=== PATIENT | male | born 1970 | race Caucasian/White ===

== ENCOUNTER 2019-03-21 16:01 | Inpatient (IN) | payer SELFPAY ==
[2019-03-21] MEDS ORDERED: NACL 0.9% 1000 ML 2,000 ML ONE (16:51)
[2019-03-21] MEDS ORDERED: VERSED IV PRN (17:06)
[2019-03-21] MEDS ORDERED: NACL 0.9% 1000 ML IV ONE (17:06)
[2019-03-21] MEDS ORDERED: VASELINE LIP THERAPY TP PRN (17:06)
[2019-03-21] MEDS ORDERED: SUBLIMAZE IV PRN (17:06)
[2019-03-21] MEDS ORDERED: ARTIFICIAL TEARS OPHTH OINT OU PRN (17:06)
[2019-03-21] MEDS ORDERED: ROCEPHIN/NS 1 GM/50 ML 1 GM/50 ML BAG IV ONE ×2 (17:13→19:54)
--- NOTE | 2019-03-21 17:27 | Emergency Department Report ---
ED General Adult HPI - General Chief complaint: Cardiac Arrest/CPR Stated complaint: SARBJIT Time Seen by Provider: 03/21/19 17:04 Source: EMS (patient is altered and obtunded. Verbal report is received from EMS.ems notes not available at time of chart dictation), RN notes reviewed, old records reviewed Mode of arrival: Stretcher Limitations: Altered Mental Status - History of Present Illness Initial comments: This is a 49-year-old gentleman. The patient is not known to this provider previously. The patient apparently has a history of COPD, hyperkalemia, and anxiety disorder. The patient is brought to the hospital by emergency medical services. EMS reports no trauma. The patient's is started on CPAP in the field, and reportedly given steroids 125 solu medrol, 2 gram magnesium sulfate, 5 mg albuterol, 0.5 atrovent. Upon arrival, the patient decompensated, and became a respiratory arrest. The patient received bag valve mask ventilation, and was intubated with one attempt, using a 7.5 endotracheal tube, inserted by myself, under direct visualization, with no difficulty. As per verbal report from EMS, patient hypoglycemic in the field, and they've initiated dextrose therapy. Patient has a glucose of greater than 100 in the ER. Patient lost pulses. Aggressive high-quality CPR initiated. Please see nursing code sheet. Given history of COPD, the patient is emergently decompress in his bilateral hemithorax, with 16 [place] IV, placed in the mid clavicular line, second axillary space, by myself, and EMS bisque brusher under my direct supervision. Shortly after insertion, patient regained pulses back. He is still in a coma. With typical sterile technique, the left hemithorax is prepped and draped, with Betadine, and using sterile technique, a 9 [place] pigtail catheter is inserted in the left midclavicular line, approximately fourth or fifth intercostal space, in line with the left nipple. Pigtail is secured to a Heimlich valve. This pigtail catheter is then secured. Shortly thereafter, the patient lost pulses again. CPR is again initiated. Please see nursing notes for details of CPR and code. Pulses are again obtained, and patient remains in a coma. Blood pressure in the low 100s. The right hemithorax is prepped and draped in typical sterile fashion, and a 9 [place] pigtail catheter is inserted in the right mid axillary line, fourth or fifth intercostal space, in line with the nipple. The pigtail is then secured to a Heimlich valve. Both anterior chest wall sides have a three-way occlusive dressing placed. IV fluids ordered wide open. Patient placed on airborne precautions, given that he has the presence of bloody aspirate and his endotracheal tube. Patient called as a code sepsis, and will be covered empirically with ceftriaxone and azithromycin. This hospital does not have a postarrest hypot hermia protocol, and therefore not be initiated on postarrest hypothermia. Emergent CT scan of the brain, CT scan of the chest ordered to further evaluate. Post intubation sedation packet is ordered. Appropriate laboratory studies ordered. Case discussed with critical care physician on-call, Dr. Michael Garduno, who agrees with the aforementioned plan. This facility does not perform postarrest hypo thermia, as we do not have a hypothermia protocol. Patient presented with a GCS of 3, and has had no improvements with his mental status. As per verbal report from EMS, who in turn received report from family, the patient reportedly has chronic shortness of breath, and apparently, the patient told the sister today to call 911 because his breathing got worse. -: unknown Radiation: other Quality: other Consistency: other Improves with: other Worsens with: other Associated Symptoms: confusion, shortness of breath, weakness - Related Data Previous Rx's Medication Instructions Recorded Last Taken Type ALBUTEROL Inhaler (OR & NICU) 2 puff IH QID PRN #1 inhalation 05/29/16 Unknown Rx [ProAir HFA Inhaler] Benzonatate [Tessalon Perles] 100 mg PO Q6H PRN #30 capsule 05/29/16 Unknown Rx Budesoni/Formotero 160-4.5(Nf) 2 puff IH BID #1 inha 05/29/16 Unknown Rx [Symbicort 160-4.5 (Nf)] Famotidine [Pepcid] 20 mg PO QDAY #30 tablet 05/29/16 Unknown Rx HYDROcodone/APAP 5-325 [Baldwin 2 each PO Q4H PRN #30 tablet 05/29/16 Unknown Rx 5-325 mg TAB] LORazepam [Ativan] 0.5 mg PO TID PRN #30 tablet 05/29/16 Unknown Rx Phenol 1.4% [Chloraseptic] 1 spray MM PRN PRN #1 bottle 05/29/16 Unknown Rx Prednisone [predniSONE 5 mg (6-Day 5 mg PO .TAPER #1 tab.ds.pk 05/29/16 Unknown Rx Pack, 21 Tabs)] Tiotropium [Spiriva] 18 mcg IH QDAY #1 box 05/29/16 Unknown Rx guaiFENesin/CODEINE [Robitussin AC] 10 ml PO Q4H PRN #1 bottle 05/29/16 Unknown Rx levoFLOXacin [Levaquin] 750 mg PO QDAY #5 tablet 05/29/16 Unknown Rx Allergies Allergy/AdvReac Type Severity Reaction Status Date / Time No Known Allergies Allergy Unverified 05/26/16 11:15 ED Review of Systems ROS: Stated complaint: SARBJIT Other details as noted in HPI Comment: Unobtainable due to pts medical conditions ED Past Medical Hx - Past Medical History Previous Medical History?: Yes Hx Congestive Heart Failure: No Hx Diabetes: No Hx Asthma: Yes Hx COPD: Yes - Social History Smoking Status: Never Smoker Substance Use Type: None - Medications Home Medications: Home Medications Medication Instructions Recorded Confirmed Last Taken Type ALBUTEROL Inhaler (OR & NICU) 2 puff IH QID PRN #1 inhalation 05/29/16 Unknown Rx [ProAir HFA Inhaler] Benzonatate [Tessalon Perles] 100 mg PO Q6H PRN #30 capsule 05/29/16 Unknown Rx Budesoni/Formotero 160-4.5(Nf) 2 puff IH BID #1 inha 05/29/16 Unknown Rx [Symbicort 160-4.5 (Nf)] Famotidine [Pepcid] 20 mg PO QDAY #30 tablet 05/29/16 Unknown Rx HYDROcodone/APAP 5-325 [Baldwin 2 each PO Q4H PRN #30 tablet 05/29/16 Unknown Rx 5-325 mg TAB] LORazepam [Ativan] 0.5 mg PO TID PRN #30 tablet 05/29/16 Unknown Rx Phenol 1.4% [Chloraseptic] 1 spray MM PRN PRN #1 bottle 05/29/16 Unknown Rx Prednisone [predniSONE 5 mg (6-Day 5 mg PO .TAPER #1 tab.ds.pk 05/29/16 Unknown Rx Pack, 21 Tabs)] Tiotropium [Spiriva] 18 mcg IH QDAY #1 box 05/29/16 Unknown Rx guaiFENesin/CODEINE [Robitussin AC] 10 ml PO Q4H PRN #1 bottle 05/29/16 Unknown Rx levoFLOXacin [Levaquin] 750 mg PO QDAY #5 tablet 05/29/16 Unknown Rx ED Physical Exam - General Limitations: Altered Mental Status General appearance: obtunded - Head Head exam: Present: atraumatic - Eye Eye exam: Present: normal appearance, other (pupils are minimally reactive to light bilaterally) - ENT ENT exam: Present: normal orophraynx (bloody aspirate is noted in the oropharynx) - Neck Neck exam: Present: normal inspection - Respiratory Respiratory exam: Present: respiratory distress, wheezes, rhonchi, decreased breath sounds, other (decreased breath sounds in the right upper hemithorax) - Cardiovascular Cardiovascular Exam: Present: regular rate, normal rhythm. Absent: systolic murmur - GI/Abdominal GI/Abdominal exam: Present: soft. Absent: distended, tenderness, guarding, rebound, rigid, pulsatile mass - Rectal Rectal exam: Present: normal inspection - exam: Present: normal inspection External exam: Present: normal external exam - Extremities Exam Extremities exam: Present: normal inspection - Back Exam Back exam: Absent: tenderness, CVA tenderness (R), paraspinal tenderness, vertebral tenderness - Psychiatric Psychiatric exam: Present: other (non verbal) - Skin Skin exam: Present: dry ED Course Vital Signs 03/21/19 03/21/19 03/21/19 16:48 17:08 17:45 Temperature 98.1 F Pulse Rate 92 H 76 Pulse Rate [ Throughout] Respiratory 18 18 18 Rate Respiratory Rate [ Throughout] Blood Pressure Blood Pressure 102/83 98/31 [Right] O2 Sat by Pulse Oximetry 03/21/19 03/21/19 03/21/19 18:16 18:26 18:36 Temperature Pulse Rate 74 37 L 78 Pulse Rate [ Throughout] Respiratory 18 13 18 Rate Respiratory Rate [ Throughout] Blood Pressure Blood Pressure 123/91 136/45 [Right] O2 Sat by Pulse 100 Oximetry 03/21/19 03/21/19 03/21/19 18:45 19:00 19:06 Temperature Pulse Rate 74 77 73 Pulse Rate [ Throughout] Respiratory 18 17 18 Rate Respiratory Rate [ Throughout] Blood Pressure 111/30 111/30 Blood Pressure 111/30 [Right] O2 Sat by Pulse 100 91 79 L Oximetry 03/21/19 03/21/19 03/21/19 19:10 19:16 19:20 Temperature Pulse Rate 74 72 73 Pulse Rate [ Throughout] Respiratory 22 18 19 Rate Respiratory Rate [ Throughout] Blood Pressure 111/30 111/30 141/118 Blood Pressure [Right] O2 Sat by Pulse 97 96 94 Oximetry 03/21/19 03/21/19 03/21/19 19:26 19:30 19:35 Temperature 94 F L Pulse Rate 72 72 72 Pulse Rate [ Throughout] Respiratory 17 18 14 Rate Respiratory Rate [ Throughout] Blood Pressure 141/118 141/118 78/41 Blood Pressure [Right] O2 Sat by Pulse 92 92 95 Oximetry 03/21/19 03/21/19 03/21/19 19:40 19:46 19:50 Temperature Pulse Rate 71 72 72 Pulse Rate [ Throughout] Respiratory 16 16 18 Rate Respiratory Rate [ Throughout] Blood Pressure 78/41 78/41 91/46 Blood Pressure [Right] O2 Sat by Pulse 98 96 95 Oximetry 03/21/19 03/21/19 03/21/19 19:56 20:00 20:06 Temperature Pulse Rate 71 71 72 Pulse Rate [ 74 Throughout] Respiratory 18 18 18 Rate Respiratory 18 Rate [ Throughout] Blood Pressure 91/46 91/46 91/46 Blood Pressure [Right] O2 Sat by Pulse 95 96 95 Oximetry 03/21/19 03/21/19 03/21/19 20:10 20:16 20:20 Temperature Pulse Rate 72 73 74 Pulse Rate [ Throughout] Respiratory 18 14 16 Rate Respiratory Rate [ Throughout] Blood Pressure 91/46 91/46 91/46 Blood Pressure [Right] O2 Sat by Pulse 95 90 91 Oximetry 03/21/19 03/21/19 03/21/19 20:26 20:28 20:30 Temperature Pulse Rate 75 74 Pulse Rate [ 78 Throughout] Respiratory 18 17 Rate Respiratory 18 Rate [ Throughout] Blood Pressure 63/31 63/31 Blood Pressure [Right] O2 Sat by Pulse 96 99 Oximetry 03/21/19 03/21/19 03/21/19 20:36 20:40 20:46 Temperature Pulse Rate 75 76 75 Pulse Rate [ Throughout] Respiratory 19 17 18 Rate Respiratory Rate [ Throughout] Blood Pressure 60/19 Blood Pressure [Right] O2 Sat by Pulse 100 100 100 Oximetry 03/21/19 03/21/19 03/21/19 20:50 20:56 21:00 Temperature Pulse Rate 74 78 78 Pulse Rate [ Throughout] Respiratory 14 16 19 Rate Respiratory Rate [ Throughout] Blood Pressure 70/44 70/44 91/46 Blood Pressure [Right] O2 Sat by Pulse 100 100 100 Oximetry 03/21/19 03/21/19 03/21/19 21:06 21:10 21:16 Temperature Pulse Rate 79 74 71 Pulse Rate [ Throughout] Respiratory 15 18 18 Rate Respiratory Rate [ Throughout] Blood Pressure 138/110 70/44 70/44 Blood Pressure [Right] O2 Sat by Pulse 98 97 83 L Oximetry 03/21/19 03/21/19 03/21/19 21:20 21:26 21:30 Temperature Pulse Rate 110 H 93 H Pulse Rate [ Throughout] Respiratory 17 17 Rate Respiratory Rate [ Throughout] Blood Pressure 59/36 59/36 138/110 Blood Pressure [Right] O2 Sat by Pulse 88 87 96 Oximetry 03/21/19 03/21/19 03/21/19 21:36 21:40 21:46 Temperature Pulse Rate 88 83 79 Pulse Rate [ Throughout] Respiratory 18 18 16 Rate Respiratory Rate [ Throughout] Blood Pressure 150/72 150/72 150/72 Blood Pressure [Right] O2 Sat by Pulse 100 99 76 L Oximetry 03/21/19 03/21/19 03/21/19 21:50 21:56 22:00 Temperature 96.3 F L Pulse Rate 75 74 75 Pulse Rate [ Throughout] Respiratory 12 17 14 Rate Respiratory Rate [ Throughout] Blood Pressure 91/70 91/70 91/70 Blood Pressure [Right] O2 Sat by Pulse 85 32 L Oximetry 03/21/19 03/21/19 03/21/19 22:06 22:10 22:16 Temperature Pulse Rate 74 67 Pulse Rate [ Throughout] Respiratory 15 13 97 H Rate Respiratory Rate [ Throughout] Blood Pressure 70/35 87/66 87/66 Blood Pressure [Right] O2 Sat by Pulse 68 L Oximetry 03/21/19 03/21/19 03/21/19 22:20 22:26 22:29 Temperature Pulse Rate 84 81 83 Pulse Rate [ Throughout] Respiratory 14 15 Rate Respiratory Rate [ Throughout] Blood Pressure 87/66 174/90 150/72 Blood Pressure [Right] O2 Sat by Pulse 82 L 64 L 99 Oximetry 03/21/19 03/21/19 03/21/19 22:30 22:36 22:40 Temperature Pulse Rate 81 79 81 Pulse Rate [ Throughout] Respiratory 14 17 16 Rate Respiratory Rate [ Throughout] Blood Pressure 174/90 63/42 72/39 Blood Pressure [Right] O2 Sat by Pulse 46 L 15 L Oximetry 03/21/19 03/21/19 03/21/19 22:46 22:50 22:56 Temperature Pulse Rate 41 L 75 Pulse Rate [ Throughout] Respiratory 13 15 Rate Respiratory Rate [ Throughout] Blood Pressure 204/115 Blood Pressure [Right] O2 Sat by Pulse 80 L Oximetry 03/21/19 03/21/19 03/21/19 23:00 23:06 23:10 Temperature Pulse Rate 62 82 85 Pulse Rate [ Throughout] Respiratory 86 H 16 18 Rate Respiratory Rate [ Throughout] Blood Pressure 204/115 172/78 144/75 Blood Pressure [Right] O2 Sat by Pulse 63 L 87 91 Oximetry 03/21/19 03/21/19 03/21/19 23:16 23:20 23:25 Temperature Pulse Rate 85 85 83 Pulse Rate [ Throughout] Respiratory 13 17 18 Rate Respiratory Rate [ Throughout] Blood Pressure 120/53 118/69 85/59 Blood Pressure [Right] O2 Sat by Pulse 91 88 61 L Oximetry 03/21/19 03/21/19 03/21/19 23:30 23:35 23:40 Temperature Pulse Rate 64 94 H Pulse Rate [ Throughout] Respiratory 19 65 H 24 Rate Respiratory Rate [ Throughout] Blood Pressure 71/52 143/85 143/85 Blood Pressure [Right] O2 Sat by Pulse 4 L 54 L Oximetry 03/21/19 03/21/19 03/21/19 23:45 23:50 23:56 Temperature Pulse Rate 80 Pulse Rate [ Throughout] Respiratory 15 20 9 L Rate Respiratory Rate [ Throughout] Blood Pressure 171/74 171/74 Blood Pressure [Right] O2 Sat by Pulse 88 Oximetry 03/22/19 00:00 Temperature Pulse Rate Pulse Rate [ Throughout] Respiratory 8 L Rate Respiratory Rate [ Throughout] Blood Pressure Blood Pressure [Right] O2 Sat by Pulse Oximetry - Reevaluation(s) Reevaluation #1: 03/21/19 17:33 Differential diagnosis, including but not limited to: Respiratory arrest, pneumonia, pneumothorax, tension pneumothorax, tuberculosis, COPD exacerbation, pulmonary embolism, intracranial lesion Assessment and plan: 49-year-old gentleman with respiratory arrest, received CPR, bilateral anterior chest wall needle decompressions, followed by bilateral 9 [place] pigtail catheter placement, currently intubated, with a GCS of 3, blood pressure in the low 100s. CT scan of the brain, chest pending. Laboratory studies pending. X-ray of the chest pending. Airborne precautions are ordered. Plan to admit to this hospital once initial diagnostics have resulted. Reevaluation #2: 03/21/19 17:56 Laboratory studies are reviewed and appreciated. Found to have renal insuffi ciency, hyperkalemia, and hypoglycemia. Medical treatment for hyperkalemia is ordered. Discussed with nephrology on- call, Dr. Jett, who agrees with this plan, and recommends repeat laboratory studies in 2-3 hours to assess potassium. If hyperkalemia still present after medical therapy and aggressive resuscitation, renal team will consider dialysis. The patient's renal insufficiency is reviewed and appreciated, however, as he arrested twice, he requires emergent diagnostic imaging to rule out potentially life-threatening pulmonary embolism. Given his obvious pulmonary infiltrates on x-ray, presence of crepitus, we are concerned that a nuclear medicine study will not be diagnostic to exclude large pulmonary embolus. Patient will be placed on Accu-Cheks every one hour, and dextrose drip is ordered. Reevaluation #3: 03/21/19 18:58 Patient had another cardiac arrest while in the ER. Received standard CPR and ACLS. Pulses are regained. Postprocedure x-ray of the chest and EKG are ordered. Initially after pulses were obtained, patient was hypotensive, an emergent sterile ultrasound guided right-sided femoral central line is attempted. Using ultrasound guidance, a collapsible nonpulsatile vessel was easily identified, and cannulated under direct visualization with ultrasound guidance. However, brisk bright red blood came out after insertion of the needle, therefore, the attempt was aborted. Direct pressure was held by myself for 10 minutes. A pressure dressing was then applied. Blood pressure 110/45. Patient does not requires vasopressor therapy at this time. Hospital physician paged to arrange admission. Reevaluation #4: 03/21/19 19:49 Repeat x-ray, repeat EKG reviewed and appreciated. Family at the bedside. Extensive discussion had with the family regarding poor prognosis, need for evaluation for tuberculosis. Family and friends have been given n 95 masks and have been instructed on how to use them. Blood pressure currently 78/45. Additional fluids ordered. Repeat Accu-Chek pending. The hospital physician was paged. Reevaluation #5: 03/21/19 19:53 Dr Priest accepts to medical service - Consultations Consultation #1: 03/21/19 20:26 Discuss repeat laboratory studies with nephrology on-call, Dr. Jett Recommends a bicarbonate drip and dextrose-containing solution, as ordered, at 125 mL per hour. Repeat potassium 5.3. We both agree the patient does not require emergent dialysis at this time. Nephrology agrees to follow in consultation. We will continue the patient's current fluid resuscitation. Consultation #2: 03/21/19 21:59 Patient lost pulses again. He receives successful resuscitation. Postresuscitation, still in COMATOSE Patient requires norepinephrine therapy. An emergent sterile left-sided internal jugular central line was placed by myself, using ultrasound guidance, with one attempt, with no difficulty, and no obvious complications. Postprocedure x-ray shows appropriate tube placement. Consultation #3: 03/21/19 22:48 Patient continues to code, and continues to have difficulty with saturation. Respiratory therapy instructed to change endotracheal tube over a bougie catheter to 8.0, or E.5 endotracheal tube. Suctioning is recommended. We discussed with critical care, Dr. Michael Garduno, who is in agreement with trans examic acid, desmopression, and aggressive supportive care requests respiratory therapy call her 03/21/19 23:46 Patient coded multiple times. Family at the bedside. Extensive discussion had regarding DO NOT RESUSCITATE and goals of care. Family still trying to decide. Dr. Joy at the bedside directing resuscitation. I am present as well. Prognosis is extremely poor. Patient is oozing from multiple sites, suspect DIC - Procedure Description Procedures done: Right hemithorax was prepped and draped in typical sterile fashion. The right mid axillary line, fourth intercostal space is identified, and a stab incision is made with an 11-gauge blade. Then, 9 [place] pigtail catheter is inserted over needle trocar, until the pleura is punctured, and in the pigtail itself is advanced further, unitl all fenestrations all within the hemithorax. The tube is then sutured in place with 0 silk, covered with Xeroform, and secured with silk tape, and attachched to a Heimlich valve. - Central Line Placement Left IJ Consent Obtained: emergent situation Time Out Performed: Yes Patient Placed on Monitor/Pulse Ox: Yes MD Prep: mask, gown, gloves Central Line Prep: Chlorhexidine scrub, sterile drapes applied Local Anesthesia Used: Lidocaine 1% Amount of Anesthesia Used (mls): 5 Ultrasound Used for Placement: Yes Central Line Lumen Inserted: triple Bloods Obtained for Lab: No Central Line Position: good blood return, all ports aspirated, flus, sutured in place with 2-0 Dressing Applied: Tegaderm Post Procedure X-Ray: tip of catheter in good p Patient Tolerated Procedure: well Complications: none - Chest Tube Chest Tube Location: forth interspace Size of [place] Tube (cm): 9 Chest Tube Procedure: betadine prep, sterile drapes applied [place] of Air [place]: Yes Tube Drainage: see nurses notes Tube Sutured to Skin: Yes Post Procedure CXR?: Yes Progress: left hemithorax - Intubation Time Out Performed: No (emergency situation) Laryngoscope: Thuy Size: 4 ET Tube Size: 7.5 Tube Secured Depth (cm): 23 Tube Secured Location: teeth Tube Placement Confirmation: visualized tube passing t, equal breath sounds bilat, no breath sounds over epi, confirmation by capnometr Patient Tolerated Procedure: well Intubation Complications: none ED Medical Decision Making - Lab Data Result diagrams: 03/21/19 17:10 03/21/19 23:30 Vital Signs 03/21/19 03/21/19 16:48 17:08 Pulse Rate 92 H Respiratory 18 18 Rate Blood Pressure 102/83 [Right] Vital Signs 03/21/19 03/21/19 16:48 17:08 Pulse Rate 92 H Respiratory 18 18 Rate Blood Pressure 102/83 [Right] Lab Results 03/21/19 03/21/19 03/21/19 Range/Units 16:21 17:10 17:10 WBC 8.6 (4.5-11.0) K/mm3 RBC 4.40 (3.65-5.03) M/mm3 Hgb 9.9 L (11.8-15.2) gm/dl Hct 33.2 L (35.5-45.6) % MCV 75 L (84-94) fl MCH 22 L (28-32) pg MCHC 30 L (32-34) % RDW 17.9 H (13.2-15.2) % Plt Count 202 (140-440) K/mm3 Sodium 140 (137-145) mmol/L Potassium 5.6 H (3.6-5.0) mmol/L Chloride 95.5 L (98-107) mmol/L Carbon Dioxide 16 L (22-30) mmol/L Anion Gap 34 mmol/L BUN 31 H (9-20) mg/dL Creatinine 2.3 H (0.8-1.5) mg/dL Estimated GFR 30 ml/min BUN/Creatinine Ratio 13 % Glucose 32 L* (75-100) mg/dL POC Glucose 103 (70-105) Lactic Acid (0.7-2.0) mmol/L Calcium 6.9 L (8.4-10.2) mg/dL Magnesium 5.20 H (1.7-2.3) mg/dL Total Bilirubin 0.80 (0.1-1.2) mg/dL AST 1512 H (5-40) units/L ALT 1180 H (7-56) units/L Alkaline Phosphatase 79 (35-129) units/L Total Creatine Kinase 214 H (55-170) units/L Troponin T < 0.010 (0.00-0.029) ng/mL Total Protein 4.6 L (6.3-8.2) g/dL Albumin 2.6 L (3.9-5) g/dL Albumin/Globulin Ratio 1.3 % Salicylates (2.8-20.0) mg/dL Acetaminophen (10.0-30.0) ug/mL Plasma/Serum Alcohol (0-0.07) % 03/21/19 03/21/19 03/21/19 Range/Units 17:10 17:10 17:10 WBC (4.5-11.0) K/mm3 RBC (3.65-5.03) M/mm3 Hgb (11.8-15.2) gm/dl Hct (35.5-45.6) % MCV (84-94) fl MCH (28-32) pg MCHC (32-34) % RDW (13.2-15.2) % Plt Count (140-440) K/mm3 Sodium (137-145) mmol/L Potassium (3.6-5.0) mmol/L Chloride (98-107) mmol/L Carbon Dioxide (22-30) mmol/L Anion Gap mmol/L BUN (9-20) mg/dL Creatinine (0.8-1.5) mg/dL Estimated GFR ml/min BUN/Creatinine Ratio % Glucose (75-100) mg/dL POC Glucose (70-105) Lactic Acid 13.30 H* (0.7-2.0) mmol/L Calcium (8.4-10.2) mg/dL Magnesium (1.7-2.3) mg/dL Total Bilirubin (0.1-1.2) mg/dL AST (5-40) units/L ALT (7-56) units/L Alkaline Phosphatase (35-129) units/L Total Creatine Kinase (55-170) units/L Troponin T (0.00-0.029) ng/mL Total Protein (6.3-8.2) g/dL Albumin (3.9-5) g/dL Albumin/Globulin Ratio % Salicylates 0.4 L (2.8-20.0) mg/dL Acetaminophen 7.6 L (10.0-30.0) ug/mL Plasma/Serum Alcohol (0-0.07) % 03/21/ Range/Units 17:10 WBC (4.5-11.0) K/mm3 RBC (3.65-5.03) M/mm3 Hgb (11.8-15.2) gm/dl Hct (35.5-45.6) % MCV (84-94) fl MCH (28-32) pg MCHC (32-34) % RDW (13.2-15.2) % Plt Count (140-440) K/mm3 Sodium (137-145) mmol/L Potassium (3.6-5.0) mmol/L Chloride (98-107) mmol/L Carbon Dioxide (22-30) mmol/L Anion Gap mmol/L BUN (9-20) mg/dL Creatinine (0.8-1.5) mg/dL Estimated GFR ml/min BUN/Creatinine Ratio % Glucose (75-100) mg/dL POC Glucose (70-105) Lactic Acid (0.7-2.0) mmol/L Calcium (8.4-10.2) mg/dL Magnesium (1.7-2.3) mg/dL Total Bilirubin (0.1-1.2) mg/dL AST (5-40) units/L ALT (7-56) units/L Alkaline Phosphatase (35-129) units/L Total Creatine Kinase (55-170) units/L Troponin T (0.00-0.029) ng/mL Total Protein (6.3-8.2) g/dL Albumin (3.9-5) g/dL Albumin/Globulin Ratio % Salicylates (2.8-20.0) mg/dL Acetaminophen (10.0-30.0) ug/mL Plasma/Serum Alcohol < 0.01 (0-0.07) % - EKG Data -: EKG Interpreted by [facility] EKG shows normal: sinus rhythm Rate: normal - EKG Data 03/21/19 17:36 Sinus rhythm, 89 bpm, normal axis, QTC prolonged, atrial enlargement, incomplete right bundle branch block, motion artifact, the EKG is abnormal, the EKG is not consistent with ST elevation myocardial infarction. Appears grossly unchanged from prior EKG from 06/27/2016. - Radiology Data Radiology results: pending, report reviewed, image reviewed Print Report Referring Physician: YASEMIN HOPE Patient Name: JOELLEN CABALLERO Date of : 1970 Sex: Male Report Date: 2019-03-21 Report Status: Finalized Findings [address] [address] XRay Report Signed Patient: JOELLEN GRESHAM MR#: [id number] : 1970 Acct:[id number] Age/Sex: 49 / M ADM Date: 03/21/19 Loc: ED Attending Dr: Ordering Physician: YASEMIN HOPE MD Date of Service: 03/21/19 Procedure(s): XR chest 1V ap Accession Number(s): [id number] cc: YASEMIN HOPE MD Fluoro Time In Minutes: CHEST 1 VIEW INDICATION: ETT placement. COMPARISON: 07/02/2016. FINDINGS: Support devices: Endotracheal tube in satisfactory position. Heart: Within normal limits. Lungs/Pleura: Diffuse bilateral infiltrates greatest at the upper zones right greater than left. Subcutaneous emphysema is extensive. A left apical pneumothorax is small. Additional findings: None. IMPRESSION: 1. Diffuse bilateral pneumonia right greater than left. 2. Endotracheal tube in satisfactory position. 3. Small left apical pneumothorax and extensive subcutaneous emphysema. Signer Name: Christopher Murry MD Signed: 03/21/2019 6:02 PM Workstation Name: [email or web address] Transcribed By: ES Dictated By: Christopher Murry MD Electronically Authenticated By: Christopher Murry MD Signed Date/Time: 03/21/19 1802 Print Report Referring Physician: YASEMIN HOPE Patient Name: JOELLEN CABALLERO Date of : 1970 Sex: Male Report Date: 2019-03-21 Report Status: Finalized Findings [facility] [address] [place] [address] Cat Scan Report Signed Patient: JOELLEN GRESHAM MR#: [id number] : 1970 Acct:[id number] Age/Sex: 49 / M ADM Date: 03/21/19 Loc: ED Attending Dr: Ordering Physician: YASEMIN HOPE MD Date of Service: 03/21/19 Procedure(s): CT angio chest Accession Number(s): [id number] cc: YASEMIN HOPE MD CT angio chest INDICATION / CLINICAL INFORMATION: resp arrest. TECHNIQUE: Precontrast bolus timing images were obtained followed by postcontrast axial and reformatted images. 3-plane MIP reconstructions were performed at an independent workstation by the technologist. All CT scans at this location are performed using CT dose reduction for ALARA by means of automated exposure control. COMPARISON: 05/27/2016 FINDINGS: Extensive subcutaneous emphysema and small bilateral pneumothoraces. Pleural catheters are in place bilaterally. There are areas of bilateral patchy airspace opacity throughout both lungs, most predominantly in the right upper lobe where there are multiple cystic areas probably representing bullous disease. No mediastinal emphysema or adenopathy. Enhancement of the pulmonary arteries is normal bilaterally. No evidence of pulmonary embolism. No skeletal abnormality. Limited upper abdominal images are nonremarkable. IMPRESSION: 1. No evidence of pulmonary embolism. 2. Bilateral airspace disease. 3. Small bilateral pneumothorax with pleural catheters. Signer Name: Stas Johnson MD Signed: 03/21/2019 6:43 PM Workstation Name: [id number] Print Report Referring Physician: YASEMIN HOPE Patient Name: JOELLEN CABALLERO Date of : 1970 Sex: Male Report Date: 2019-03-21 Report Status: Finalized Findings [facility] [address] [place] [id number] Cat Scan Report Signed Patient: JOELLEN GRESHAM MR#: [id number] : 1970 Acct:[id number] Age/Sex: 49 / M ADM Date: 03/21/19 Loc: ED Attending Dr: Ordering Physician: YASEMIN HOPE MD Date of Service: 03/21/19 Procedure(s): CT head/brain wo con Accession Number(s): [id number] cc: YASEMIN HOPE MD CT head/brain wo con INDICATION / CLINICAL INFORMATION: 49 years Male; ams resp arrest. TECHNIQUE: Routine CT head without contrast. All CT scans at this location are performed using CT dose reduction for ALARA by means of automated exposure control. Suboptimal carie ent positioning; metallic hardware artifact. COMPARISON: None. FINDINGS: BRAIN / INTRACRANIAL CONTENTS: The patient is intubated. No acute hemorrhage, mass effect, midline shift, hydrocephalus, or acute, large territorial infarct. No chronic infarct or focal atrophy. Normal brain volume and ventricular/sulcal size for age. No significant white matter abnormality. CRANIOCERVICAL JUNCTION: No significant abnormality. ORBITS: No significant abnormality of visualized orbits. SINUSES / MASTOIDS: Scattered areas of partial opacification and mucosal thickening seen, which certainly may be related to the patient being intubated. Secretions seen in the nasopharynx as well. ADDITIONAL FINDINGS: None. IMPRESSION: 1. No focal mass, hemorrhage, hydrocephalus, or acute, large territorial infarct on this limited CT. Signer Name: Ishmael Nuñez MD, III Signed: 03/21/2019 6:33 PM Workstation Name: [id number] Transcribed By: HR Dictated By: Ishmael Nuñez MD Electronically Authenticated By: Ishmael Nuñez MD Signed Date/Time: 03/21/19 1833 \ Print Report Referring Physician: YASEMIN HOPE Patient Name: JOELLEN CABALLERO Date of : 1970 Sex: Male Report Date: 2019-03-21 Report Status: Finalized Findings [address] [address] XRay Report Signed Patient: JOELLEN GRESHAM MR#: [id number] : 1970 Acct:[id number] Age/Sex: 49 / M ADM Date: 03/21/19 Loc: ED Attending Dr: Ordering Physician: YASEMIN HOPE MD Date of Service: 03/21/19 Procedure(s): XR chest 1V ap Accession Number(s): [id number] cc: YASEMIN HOPE MD Fluoro Time In Minutes: CHEST 1 VIEW INDICATION / CLINICAL INFORMATION: s/p arrest. 03/21/2019 at 1730 hours COMPARISON: None available. FINDINGS: SUPPORT DEVICES: Bilateral pleural catheters are unchanged in position. The tip of the endotracheal tube is 9 cm from the zayda. HEART / MEDIASTINUM: No significant abnormality. LUNGS / PLEURA: Multifocal airspace opacities are unchanged small left pneumothorax and tiny right apical pneumothorax. ADDITIONAL FINDINGS: Subcutaneous emphysema bilaterally is unchanged. IMPRESSION: 1. Small bilateral pneumothoraces. 2. No change in extensive airspace disease. Signer Name: Stas Johnson MD Signed: 03/21/2019 7:31 PM Workstation Name: [id number] Transcribed By: KRYSTLE Dictated By: Stas Johnson MD Electronically Authenticated By: Stas Johnson MD Signed Date/Time: 03/21/19 1931 rint Report Referring Physician: YASEMIN HOPE Patient Name: JOELLEN CABALLERO Date of : 1970 Sex: Male Report Date: 2019-03-21 Report Status: Finalized Findings [address] [address] XRay Report Signed Patient: JOELLEN GRESHAM MR#: [id number] : 1970 Acct:[id number] Age/Sex: 49 / M ADM Date: 03/21/19 Loc: CC1 A260-[address]: TANIA JOY MD Ordering Physician: YASEMIN HOPE MD Date of Service: 03/21/19 Procedure(s): XR chest 1V ap Accession Number(s): [id number] cc: YASEMIN HOPE MD Fluoro Time In Minutes: . CHEST 1 VIEW INDICATION / CLINICAL INFORMATION: central line placement. COMPARISON: 03/21/2019 FINDINGS: SUPPORT DEVICES: Endotracheal tube remains in place. Central line is now seen from a left jugular approach with the tip in the region of the junction of the left jugular and innominate veins. Left chest tube remains in place as well. HEART / MEDIASTINUM: No significant abnormality. LUNGS / PLEURA: Extensive right upper lobe consolidation is unchanged with co nsolidation in the remaining right lung and left lung also unchanged. Minimal left apical pneumotho rax is unchanged. ADDITIONAL FINDINGS: No significant additional findings. IMPRESSION: 1. The central line is somewhat high in position. The left apical pneumothorax is unchanged. Signer Name: Jose Martinez MD Signed: 03/21/2019 11:37 PM Workstation Name: [id number] Transcribed By: JM Dictated By: Jose Martinez MD Electronically Authenticated By: Jose Martinez MD Signed Date/Time: 03/21/192336 DD/ 2336 Critical Care Time: Yes Critical care time in (mins) excluding proc time.: 180 Critical care attestation.: If time is entered above; I have spent that time in minutes in the direct care of this critically ill patient, excluding procedure time. ED Disposition Clinical Impression: ANTONIO (acute kidney injury), Hyperkalemia, Hypoglycemia Acute respiratory failure Qualifiers: Respiratory failure complication: unspecified whether with hypoxia or hypercapnia Qualified Code(s): J96.00 - Acute respiratory failure, unspecified whether with hypoxia or hypercapnia Disposition: OP ADMIT IP TO THIS HOSP Is pt being admited?: Yes Condition: Critical
[2019-03-21 17:28] LABS: Mean Corpuscular HGB Conc 30 % (32-34); Mean Corpuscular Volume 75 fl (84-94); Platelet Count 202 K/mm3 (140-440); Red Cell Distribution Width 17.9 % (13.2-15.2)
[2019-03-21 17:32] LABS: Hematocrit 33.2 % (35.5-45.6); Hemoglobin 9.9 gm/dl (11.8-15.2)
[2019-03-21 17:41] LABS: Albumin 2.6 g/dL (3.9-5); BUN/Creatinine Ratio 13; Blood Urea Nitrogen 31 mg/dL (9-20); Calcium 6.9 mg/dL (8.4-10.2); Hemolysis Index 10
[2019-03-21] MEDS ORDERED: PROVENTIL IH ONE ×3 (17:43→20:28)
[2019-03-21] MEDS ORDERED: HumuLIN R IV ONE (17:43)
[2019-03-21] MEDS ORDERED: KIONEX PR ONE (17:43)
[2019-03-21] MEDS ORDERED: D50W (25GM) Vial IV ONE (17:43)
[2019-03-21] MEDS ORDERED: D50W (25GM) Vial IV PRN (17:43)
[2019-03-21 17:46] LABS: Alanine Aminotransferase 1180 units/L (7-56)
[2019-03-21] MEDS ORDERED: D5NS 1,000 ML IV SCH (18:00)
[2019-03-21] MEDS ORDERED: CALCIUM GLUCONATE 2,000 MG in NACL 0.9% 100 ML IV ONE (18:00)
[2019-03-21] MEDS ORDERED: MIDAZOLAM 100 MG in NACL 0.9% 80 ML IV SCH (18:00)
[2019-03-21] MEDS ORDERED: fentaNYL DRIP Premix 2,000 MCG/100 ML BAG IV SCH (18:00)
[2019-03-21] MEDS ORDERED: D50W (25GM) Syringe IV ONE ×2 (18:00→23:00)
--- NOTE | 2019-03-21 18:07 | XRay Report ---
CHEST 1 VIEW INDICATION: ETT placement. COMPARISON: 07/02/2016. FINDINGS: Support devices: Endotracheal tube in satisfactory position. Heart: Within normal limits. Lungs/Pleura: Diffuse bilateral infiltrates greatest at the upper zones right greater than left. Subc utaneous emphysema is extensive. A left apical pneumothorax is small. Additional findings: None. IMPRESSION: 1. Diffuse bilateral pneumonia right greater than left. 2. Endotracheal tube in satisfactory position. 3. Small left apical pneumothorax and extensive subcutaneous emphysema. Signer Name: Christopher Murry MD Signed: 03/21/2019 6:02 PM Workstation Name: [id number]
[2019-03-21 18:12] LABS: Total Cells Counted 100
[2019-03-21 18:13] LABS: Basophils % (Manual) 0 % (0.0-1.8); Eosinophils % (Manual) 0 % (0.0-4.3); Hypochromasia 1+
--- NOTE | 2019-03-21 18:38 | Cat Scan Report ---
CT head/brain wo con INDICATION / CLINICAL INFORMATION: 49 years Male; ams resp arrest. TECHNIQUE: Routine CT head without contrast. All CT scans at this location are performed using CT dos e reduction for ALARA by means of automated exposure control. Suboptimal patient positioning; metalli c hardware artifact. COMPARISON: None. FINDINGS: BRAIN / INTRACRANIAL CONTENTS: The patient is intubated. No acute hemorrhage, mass effect, midline shift, hydrocephalus, or acute, large territorial infarct. No chronic infarct or focal atrophy. Normal brain volume and ventricular/sulcal size for age. No sig nificant white matter abnormality. CRANIOCERVICAL JUNCTION: No significant abnormality. ORBITS: No significant abnormality of visualized orbits. SINUSES / MASTOIDS: Scattered areas of partial opacification and mucosal thickening seen, which certa inly may be related to the patient being intubated. Secretions seen in the nasopharynx as well. ADDITIONAL FINDINGS: None. IMPRESSION: 1. No focal mass, hemorrhage, hydrocephalus, or acute, large territorial infarct on this limited CT. Signer Name: Ishmael Nuñez MD, III Signed: 03/21/2019 6:33 PM Workstation Name: [id number]
--- NOTE | 2019-03-21 18:48 | Cat Scan Report ---
CT angio chest INDICATION / CLINICAL INFORMATION: resp arrest. TECHNIQUE: Precontrast bolus timing images were obtained followed by postcontrast axial and reformatted images. 3-plane MIP reconstructions were performed at an independent workstation by the technologist. All CT scans at this location are performed using CT dose reduction for ALARA by means of automated exposure control. COMPARISON: 05/27/2016 FINDINGS: Extensive subcutaneous emphysema and small bilateral pneumothoraces. Pleural catheters are in place bilaterally. There are areas of bilateral patchy airspace opacity throughout both lungs, most predominantly in the right upper lobe where there are multiple cystic areas probably representing bullous disease. No mediastinal emphysema or adenopathy. Enhancement of the pulmonary arteries is normal bilaterally. No evidence of pulmonary embolism. No skeletal abnormality. Limited upper abdominal images are nonremarkable. IMPRESSION: 1. No evidence of pulmonary embolism. 2. Bilateral airspace disease. 3. Small bilateral pneumothorax with pleural catheters. Signer Name: Stas Johnson MD Signed: 03/21/2019 6:43 PM Workstation Name: [id number]
[2019-03-21] MEDS ORDERED: NACL 0.9% 1000 ML 1,000 ML IV ONE ×2 (19:34→19:47)
--- NOTE | 2019-03-21 19:35 | XRay Report ---
CHEST 1 VIEW INDICATION / CLINICAL INFORMATION: s/p arrest. 03/21/2019 at 1730 hours COMPARISON: None available. FINDINGS: SUPPORT DEVICES: Bilateral pleural catheters are unchanged in position. The tip of the endotracheal tube is 9 cm from the zayda. HEART / MEDIASTINUM: No significant abnormality. LUNGS / PLEURA: Multifocal airspace opacities are unchanged small left pneumothorax and tiny right ap ical pneumothorax. ADDITIONAL FINDINGS: Subcutaneous emphysema bilaterally is unchanged. IMPRESSION: 1. Small bilateral pneumothoraces. 2. No change in extensive airspace disease. Signer Name: Stas Johnson MD Signed: 03/21/2019 7:31 PM Workstation Name: [id number]
[2019-03-21] MEDS ORDERED: NACL 0.9% 1000 ML 2,000 ML IV ONE (19:47)
[2019-03-21] MEDS ORDERED: KIONEX ONE (19:53)
[2019-03-21 19:56] LABS: Calcium 8.1 mg/dL (8.4-10.2)
[2019-03-21] MEDS ORDERED: SODIUM BICARBONATE 150 MEQ in D5W 1,000 ML IV SCH ×2 (21:00→23:00)
[2019-03-21] MEDS ORDERED: LEVOPHED DRIP 4 MG/NS 250 ML 4 MG/250 ML BAG IV SCH (21:00)
[2019-03-21] MEDS ORDERED: INTROPIN DRIP 800 MG/D5W 250 ML 800 MG/250 ML BAG IV SCH (22:30)
[2019-03-21] MEDS ORDERED: SODIUM CHLORIDE FLUSH SYRINGE 10 ML IV PRN (22:32)
[2019-03-21] MEDS ORDERED: ZOFRAN IV PRN (22:32)
[2019-03-21] MEDS ORDERED: TYLENOL PO PRN (22:32)
--- NOTE | 2019-03-21 22:36 | History and Physical Report ---
History of Present Illness Date of examination: 03/21/19 History of present illness: 49-year-old man with a history of COPD was brought to the emergency room with complaints of shortness of breath 3 days per sister. Patient was placed on CPAP, given steroids and breathing treatment in the field. Upon arrival in the emergency room he coded 5 times before I saw him. I saw the patient Into another cardiac arrest and several subsequent cardiac arrest. He was intubated, and bloody sputum. He's been placed on airborne precaution for possible TB. I have maxed out his levophed drip, dopamine, and he was continued on IV fluids. The status post IV Rocephin, azithromycin in the emergency room. Review of system is unobtainable PAST MEDICAL HISTORY:COPD PAST SURGICAL HISTORY:None FAMILY HISTORY:hypertension, diabetes SOCIAL HISTORY:+ tobacco, no drugs, + alcohol Medications and Allergies Allergies Allergy/AdvReac Type Severity Reaction Status Date / Time No Known Allergies Allergy Unverified 05/26/16 11:15 Home Medications Medication Instructions Recorded Confirmed Last Taken Type ALBUTEROL Inhaler (OR & NICU) 2 puff IH QID PRN #1 inhalation 05/29/16 Unknown Rx [ProAir HFA Inhaler] Benzonatate [Tessalon Perles] 100 mg PO Q6H PRN #30 capsule 05/29/16 Unknown Rx Budesoni/Formotero 160-4.5(Nf) 2 puff IH BID #1 inha 05/29/16 Unknown Rx [Symbicort 160-4.5 (Nf)] Famotidine [Pepcid] 20 mg PO QDAY #30 tablet 05/29/16 Unknown Rx HYDROcodone/APAP 5-325 [Kermit 2 each PO Q4H PRN #30 tablet 05/29/16 Unknown Rx 5-325 mg TAB] LORazepam [Ativan] 0.5 mg PO TID PRN #30 tablet 05/29/16 Unknown Rx Phenol 1.4% [Chloraseptic] 1 spray MM PRN PRN #1 bottle 05/29/16 Unknown Rx Prednisone [predniSONE 5 mg (6-Day 5 mg PO .TAPER #1 tab.ds.pk 05/29/16 Unknown Rx Pack, 21 Tabs)] Tiotropium [Spiriva] 18 mcg IH QDAY #1 box 05/29/16 Unknown Rx guaiFENesin/CODEINE [Robitussin AC] 10 ml PO Q4H PRN #1 bottle 05/29/16 Unknown Rx levoFLOXacin [Levaquin] 750 mg PO QDAY #5 tablet 05/29/16 Unknown Rx Active Meds: Active Medications Acetaminophen (Tylenol) 650 mg PO Q4H PRN PRN Reason: Pain MILD(1-3)/Fever >100.5/CORTES Dextrose (D50w (25gm) Vial) 50 gm IV PRN PRN PRN Reason: Hypoglycemia Fentanyl (Sublimaze) 50 mcg IV Q10MIN PRN PRN Reason: ANALGESIA Hydrophilic Ointment (Vaseline Lip Therapy) 1 applic TP Q2HR PRN PRN Reason: Dry Lips Fentanyl Citrate (Fentanyl Drip Premix) 2,000 mcg in 100 mls @ 0 mls/hr IV TITR MILTON; Protocol Midazolam HCl 100 mg/ Sodium (Chloride) 100 mls @ 2 mls/hr IV TITR MILTON; Protocol Sodium Bicarbonate 150 meq/ (Dextrose) 1,150 mls @ 125 mls/hr IV DIRECT [place] Norepinephrine (Levophed Drip 4 Mg/Ns 250 Ml) 4 mg in 250 mls @ 7.5 mls/hr IV TITR MILTON; Protocol Sodium Bicarbonate 150 meq/ (Dextrose) 1,150 mls @ 75 mls/hr IV DIRECT MIL[place] Sodium Chloride (Nacl 0.9% 1000 Ml) 1,000 mls @ 150 mls/hr IV DIRECT [place] Midazolam HCl (Versed) 2 mg IV Q10MIN PRN PRN Reason: Sedation Multi-Ingred Cream/Lotion/Oil/Oint (Artificial Tears Ophth Oint) 1 applic OU Q4HR PRN PRN Reason: Dry Eye(s) Ondansetron HCl (Zofran) 4 mg IV Q4H PRN PRN Reason: Nausea And Vomiting Sodium Chloride (Sodium Chloride Flush Syringe 10 Ml) 10 ml IV BID MILTON Sodium Chloride (Sodium Chloride Flush Syringe 10 Ml) 10 ml IV PRN PRN PRN Reason: LINE FLUSH Exam - Physical Exam Narrative exam: General Apperance: The patient sitting in bed no acute distress, intubated HEENT: Normocephalic, atraumatic. Pupils fixed, unable to do extraocular movement intact, and no sclericterus or JVD or thyromegaly or nodule. Neck supple, no carotid bruit, mucous membranes moist,ETT in place Heart: S1-S2, regular is rhythm Lungs: Crackles bilaterally, right> left, breathing comfortable Abdomen: Positive bowel sounds, soft, nontender, nondistended, no organomegaly Extremities: No edema cyanosis clubbing Skin: mottled, no rash, nodule, warm and dry Neuro:sedated - Constitutional Vitals: Temp Pulse Resp BP Pulse Ox 94 F L 83 18 150/72 99 03/21/19 19:30 03/21/19 22:29 03/21/19 21:40 03/21/19 22:29 03/21/19 22:29 Results - Labs CBC & Chem 7: 03/21/19 17:10 03/21/19 23:30 Labs: Abnormal lab results 03/21/19 03/21/19 03/21/19 Range/Units 17:10 17:10 17:10 Hgb 9.9 L (11.8-15.2) gm/dl Hct 33.2 L (35.5-45.6) % MCV 75 L (84-94) fl MCH 22 L (28-32) pg MCHC 30 L (32-34) % RDW 17.9 H (13.2-15.2) % Monocytes % (Manual) 9.0 H (0.0-7.3) % POC ABG pH (7.35-7.45) POC ABG pCO2 (35-45) POC ABG pO2 (80-105) Potassium 5.6 H (3.6-5.0) mmol/L Chloride 95.5 L (98-107) mmol/L Carbon Dioxide 16 L (22-30) mmol/L BUN 31 H (9-20) mg/dL Creatinine 2.3 H (0.8-1.5) mg/dL Glucose 32 L* (75-100) mg/dL Lactic Acid 13.30 H* (0.7-2.0) mmol/L Calcium 6.9 L (8.4-10.2) mg/dL Magnesium 5.20 H (1.7-2.3) mg/dL AST 1512 H (5-40) units/L ALT 1180 H (7-56) units/L Total Creatine Kinase 214 H (55-170) units/L Total Protein 4.6 L (6.3-8.2) g/dL Albumin 2.6 L (3.9-5) g/dL Salicylates (2.8-20.0) mg/dL Acetaminophen (10.0-30.0) ug/mL 03/21/19 03/21/19 03/21/19 Range/Units 17:10 17:10 18:25 Hgb (11.8-15.2) gm/dl Hct (35.5-45.6) % MCV (84-94) fl MCH (28-32) pg MCHC (32-34) % RDW (13.2-15.2) % Monocytes % (Manual) (0.0-7.3) % POC ABG pH 7.004 L (7.35-7.45) POC ABG pCO2 64.6 H (35-45) POC ABG pO2 271 H (80-105) Potassium (3.6-5.0) mmol/L Chloride (98-107) mmol/L Carbon Dioxide (22-30) mmol/L BUN (9-20) mg/dL Creatinine (0.8-1.5) mg/dL Glucose (75-100) mg/dL Lactic Acid (0.7-2.0) mmol/L Calcium (8.4-10.2) mg/dL Magnesium (1.7-2.3) mg/dL AST (5-40) units/L ALT (7-56) units/L Total Creatine Kinase (55-170) units/L Total Protein (6.3-8.2) g/dL Albumin (3.9-5) g/dL Salicylates 0.4 L (2.8-20.0) mg/dL Acetaminophen 7.6 L (10.0-30.0) ug/mL 03/21/19 03/21/19 Range/Units 19:21 19:21 Hgb (11.8-15.2) gm/dl Hct (35.5-45.6) % MCV (84-94) fl MCH (28-32) pg MCHC (32-34) % RDW (13.2-15.2) % Monocytes % (Manual) (0.0-7.3) % POC ABG pH (7.35-7.45) POC ABG pCO2 (35-45) POC ABG pO2 (80-105) Potassium 5.3 H (3.6-5.0) mmol/L Chloride (98-107) mmol/L Carbon Dioxide 10 L (22-30) mmol/L BUN 28 H (9-20) mg/dL Creatinine 2.1 H (0.8-1.5) mg/dL Glucose (75-100) mg/dL Lactic Acid 11.70 H* (0.7-2.0) mmol/L Calcium 8.1 L D (8.4-10.2) mg/dL Magnesium (1.7-2.3) mg/dL AST (5-40) units/L ALT (7-56) units/L Total Creatine Kinase (55-170) units/L Total Protein (6.3-8.2) g/dL Albumin (3.9-5) g/dL Salicylates (2.8-20.0) mg/dL Acetaminophen (10.0-30.0) ug/mL - Imaging and Cardiology EKG: image reviewed Chest x-ray: report reviewed CT scan - chest: report reviewed CT Scan - head: report reviewed Assessment and Plan Assessment Acute respiratory failure, hypoxic Cardiac arrest, multiple Extensive pneumonia bilateral, rule out TB Acute renal failure Multiorgan dysfunction Bilateral pneumothoraces, status post chest tube Hyperkalemia, s/p treatment COPD Plan Continue IV fluid, levophed , dopamine, and vasopressin, Versed and fentanyl drip Bicarbonate was given, started on a bicarbonate drip Check cardiac enzymes, echo, consult cardiology, critical care Patient continues to be hypoxic despite being on 100% FiO2 Further orders were obtained from Dr. Lofton by Dr Colon The patient continues to code, he had a total of 11 codes On the final code, family requested that we stop all aggressive measures DO NOT RESUSCITATE paper were signed Time of 2356 CC 60 min
[2019-03-21] MEDS ORDERED: DDAVP IV ONE (22:46)
[2019-03-21] MEDS ORDERED: NACL 0.9% IV ONE (22:46)
[2019-03-21] MEDS ORDERED: NACL 0.9% 1000 ML 1,000 ML IV SCH (23:00)
[2019-03-21] MEDS ORDERED: ADRENALIN ONE (23:00)
[2019-03-21] MEDS ORDERED: INTROPIN DRIP 800 MG/D5W 250 ML IV ONE (23:00)
[2019-03-21] MEDS ORDERED: CALCIUM CHLORIDE IV ONE (23:00)
[2019-03-21] MEDS ORDERED: AMIDATE IV ONE (23:00)
[2019-03-21] MEDS ORDERED: TRANEXAMIC ACID 1,000 MG in NACL 0.9% 100 ML IV NR (23:00)
[2019-03-21] MEDS ORDERED: BENADRYL ONE (23:00)
--- NOTE | 2019-03-21 23:42 | XRay Report ---
. CHEST 1 VIEW INDICATION / CLINICAL INFORMATION: central line placement. COMPARISON: 03/21/2019 FINDINGS: SUPPORT DEVICES: Endotracheal tube remains in place. Central line is now seen from a left jugular tae velez with the tip in the region of the junction of the left jugular and innominate veins. Left chest tube remains in place as well. HEART / MEDIASTINUM: No significant abnormality. LUNGS / PLEURA: Extensive right upper lobe consolidation is unchanged with consolidation in the remai pamela right lung and left lung also unchanged. Minimal left apical pneumothorax is unchanged. ADDITIONAL FINDINGS: No significant additional findings. IMPRESSION: 1. The central line is somewhat high in position. The left apical pneumothorax is unchanged. Signer Name: Jose Martinez MD Signed: 03/21/2019 11:37 PM Workstation Name: [id number]
[2019-03-21] MEDS ORDERED: Vasostrict 20 UNIT in NACL 0.9% 100 ML IV SCH (23:45)
[2019-03-22 00:05] VITALS: BP 171/74
--- NOTE | 2019-03-22 00:14 | Event Note ---
Date: 03/21/19 Several Code Blue Please refer to code sheet and discharge summary for details Time of 7117
[2019-03-22 00:23] LABS: Partial Thromboplastin Time 25.1 Sec. (24.2-36.6)
[2019-03-22 00:26] LABS: INR 10.72 (0.87-1.13)
[2019-03-22 03:27] LABS: Creatine Kinase MB 117.6 ng/mL (0.0-4.0)
[2019-03-22 03:28] LABS: Alanine Aminotransferase 2165 units/L (7-56); BUN/Creatinine Ratio 12; Blood Urea Nitrogen 29 mg/dL (9-20); Calcium 9.2 mg/dL (8.4-10.2)
[2019-03-22 03:29] LABS: Albumin 1.4 g/dL (3.9-5)
--- NOTE | 2019-03-22 09:50 | Consultation ---
History of Present Illness Consult date: 03/22/19 Medications and Allergies Allergies Allergy/AdvReac Type Severity Reaction Status Date / Time No Known Allergies Allergy Unverified 05/26/16 11:15 Home Medications Medication Instructions Recorded Confirmed Last Taken Type ALBUTEROL Inhaler (OR & NICU) 2 puff IH QID PRN #1 inhalation 05/29/16 Unknown Rx [ProAir HFA Inhaler] Benzonatate [Tessalon Perles] 100 mg PO Q6H PRN #30 capsule 05/29/16 Unknown Rx Budesoni/Formotero 160-4.5(Nf) 2 puff IH BID #1 inha 05/29/16 Unknown Rx [Symbicort 160-4.5 (Nf)] Famotidine [Pepcid] 20 mg PO QDAY #30 tablet 05/29/16 Unknown Rx HYDROcodone/APAP 5-325 [[place] 2 each PO Q4H PRN #30 tablet 05/29/16 Unknown Rx 5-325 mg TAB] LORazepam [Ativan] 0.5 mg PO TID PRN #30 tablet 05/29/16 Unknown Rx Phenol 1.4% [Chloraseptic] 1 spray MM PRN PRN #1 bottle 05/29/16 Unknown Rx Prednisone [predniSONE 5 mg (6-Day 5 mg PO .TAPER #1 tab.ds.pk 05/29/16 Unknown Rx Pack, 21 Tabs)] Tiotropium [Spiriva] 18 mcg IH QDAY #1 box 05/29/16 Unknown Rx guaiFENesin/CODEINE [Robitussin AC] 10 ml PO Q4H PRN #1 bottle 05/29/16 Unknown Rx levoFLOXacin [Levaquin] 750 mg PO QDAY #5 tablet 05/29/16 Unknown Rx Active Meds: Active Medications Acetaminophen (Tylenol) 650 mg PO Q4H PRN PRN Reason: Pain MILD(1-3)/Fever >100.5/CORTES Dextrose (D50w (25gm) Vial) 50 gm IV PRN PRN PRN Reason: Hypoglycemia Fentanyl (Sublimaze) 50 mcg IV Q10MIN PRN PRN Reason: ANALGESIA Hydrophilic Ointment (Vaseline Lip Therapy) 1 applic TP Q2HR PRN PRN Reason: Dry Lips Fentanyl Citrate (Fentanyl Drip Premix) 2,000 mcg in 100 mls @ 3.538 mls/hr IV TITR [place]; Protocol Midazolam HCl 100 mg/ Sodium (Chloride) 100 mls @ 2 mls/hr IV TITR [place]; Protocol Last Admin: 03/21/19 23:25 Dose: 2 mg/hr, 2 mls/hr Documented by: Norepinephrine (Levophed Drip 4 Mg/Ns 250 Ml) 4 mg in 250 mls @ 7.5 mls/hr IV TITR [place]; Protocol Last Titration: 03/21/19 22:45 Dose: 5.33 mcg/min, 20 mls/hr Documented by: Sodium Bicarbonate 150 meq/ (Dextrose) 1,150 mls @ 75 mls/hr IV DIRECT [place] Last Admin: 03/21/19 22:20 Dose: 75 mls/hr Documented by: Sodium Chloride (Nacl 0.9% 1000 Ml) 1,000 mls @ 150 mls/hr IV DIRECT [place] Vasopressin 20 unit/ Sodium (Chloride) 101 mls @ 9.09 mls/hr IV TITR [place]; Protocol Dopamine HCl/Dextrose (Intropin Drip 800 Mg/D5w 250 Ml) 800 mg in 250 mls @ 13.268 mls/hr IV TITR [place]; Protocol Last Titration: 03/21/19 22:55 Dose: 20 mcg/kg/min, 26.535 mls/hr Documented by: Midazolam HCl (Versed) 2 mg IV Q10MIN PRN PRN Reason: Sedation Multi-Ingred Cream/Lotion/Oil/Oint (Artificial Tears Ophth Oint) 1 applic OU Q4HR PRN PRN Reason: Dry Eye(s) Ondansetron HCl (Zofran) 4 mg IV Q4H PRN PRN Reason: Nausea And Vomiting Sodium Chloride (Sodium Chloride Flush Syringe 10 Ml) 10 ml IV BID [place] Sodium Chloride (Sodium Chloride Flush Syringe 10 Ml) 10 ml IV PRN PRN PRN Reason: LINE FLUSH Physical Examination Vital signs: Vital Signs Pulse Resp BP 92 H 18 102/83 03/21/19 16:48 03/21/19 16:48 03/21/19 16:48 Results - Laboratory Findings CBC and BMP: 03/21/19 17:10 03/21/19 23:30 ABG POC ABG pH 7.004 (7.35-7.45) L 03/21/19 18:25 POC ABG pCO2 64.6 (35-45) H 03/21/19 18:25 POC ABG pO2 271 (80-105) H 03/21/19 18:25 POC ABG HCO3 16.1 (22-26 mml/L) 03/21/19 18:25 POC ABG Total CO2 18 (23-27mmol/L) 03/21/19 18:25 POC ABG O2 Sat 100 03/21/19 18:25 PT/INR, D-dimer PT 83.5 Sec. (12.2-14.9) H 03/21/19 23:30 INR 10.72 (0.87-1.13) H* 03/21/19 23:30 Abnormal lab findings: Abnormal Labs 03/21/19 03/21/19 03/21/19 17:10 17:10 17:10 Hgb 9.9 L Hct 33.2 L MCV 75 L MCH 22 L MCHC 30 L RDW 17.9 H Monocytes % (Manual) 9.0 H PT INR POC ABG pH POC ABG pCO2 POC ABG pO2 Potassium 5.6 H Chloride 95.5 L Carbon Dioxide 16 L BUN 31 H Creatinine 2.3 H Glucose 32 L* Lactic Acid 13.30 H* Calcium 6.9 L Magnesium 5.20 H AST 1512 H ALT 1180 H Total Creatine Kinase 214 H CK-MB (CK-2) Total Protein 4.6 L Albumin 2.6 L Salicylates Acetaminophen 03/21/19 03/21/19 03/21/19 17:10 17:10 18:25 Hgb Hct MCV MCH MCHC RDW Monocytes % (Manual) PT INR POC ABG pH 7.004 L POC ABG pCO2 64.6 H POC ABG pO2 271 H Potassium Chloride Carbon Dioxide BUN Creatinine Glucose Lactic Acid Calcium Magnesium AST ALT Total Creatine Kinase CK-MB (CK-2) Total Protein Albumin Salicylates 0.4 L Acetaminophen 7.6 L 03/21/19 03/21/19 03/21/19 19:21 19:21 23:30 Hgb Hct MCV MCH MCHC RDW Monocytes % (Manual) PT INR POC ABG pH POC ABG pCO2 POC ABG pO2 Potassium 5.3 H Chloride Carbon Dioxide 10 L BUN 28 H Creatinine 2.1 H Glucose Lactic Acid 11.70 H* Calcium 8.1 L D Magnesium AST ALT Total Creatine Kinase 7026 H CK-MB (CK-2) 117.6 H Total Protein Albumin Salicylates Acetaminophen 03/21/19 03/21/19 23:30 23:30 Hgb Hct MCV MCH MCHC RDW Monocytes % (Manual) PT 83.5 H INR 10.72 H* POC ABG pH POC ABG pCO2 POC ABG pO2 Potassium 6.8 H* D Chloride 108.4 H Carbon Dioxide 15 L BUN 29 H Creatinine 2.4 H Glucose 105 H Lactic Acid Calcium Magnesium AST ALT 2165 H Total Creatine Kinase CK-MB (CK-2) Total Protein 2.8 L D Albumin 1.4 L Salicylates Acetaminophen
[2019-03-22] MEDS ORDERED: SODIUM CHLORIDE FLUSH SYRINGE 10 ML IV SCH (10:00)
--- NOTE | 2019-03-22 15:16 | Discharge Summary ---
SUMMARY FINAL DIAGNOSES: 1. . 2. Acute respiratory failure. 3. Cardiac arrest, multiple. 4. Extensive bilateral pneumonia, rule out tuberculosis. 5. Acute renal failure. 6. Multiorgan dysfunction. 7. Chronic obstructive pulmonary disease. 8. Bilateral pneumothoraces. TESTS: 1. Chest x-ray, diffuse bilateral pneumonia, right greater than left, with small apical pneumothorax and extensive subcutaneous emphysema. 2. CT chest, no evidence of PE, bilateral airspace disease throughout both lungs, mostly predominant in the right upper lobe where there are multiple cystic areas, probably representing bullous disease. Small bilateral pneumothorax. 3. CT head, no acute process. LABORATORY DATA: Sodium 137, potassium 5.3, chloride 104, bicarbonate 10, BUN 28, creatinine 2.1, lactic acid 11.7, calcium 8.1, magnesium 5.2, AST 1512, ALT 1180, alkaline phosphatase 79. Cardiac enzymes 214. Troponin negative x 2. Total protein 4.6, albumin 2.6. White count 8.6, hemoglobin 9.9, hematocrit 33.2, platelets 202. HOSPITAL COURSE: A 49-year-old male with a history of COPD, comes to the Emergency Room for evaluation of shortness of breath x 3 days. He was placed on BiPAP in the field and given steroids with breathing treatments. In the Emergency Room, he rapidly deteriorated. He was given IV antibiotics, started on multiple pressors for sustained hypotension. He was coded a total of 11 times. The patient was also started on aggressive IV fluid, bicarbonate drip and IV sedation. The family decided to abort aggressive care and he was pronounced at 2356. Please refer to the H and P for details. JOB# [id number] AES/NTS
== END 2019-03-21 23:56 | DRG 208 ==
LOC: ED 16:01 → CC1 22:32
PROVIDERS: ADMIT Internal Medicine; ATTEND Internal Medicine
PROC: 5A1935Z Respiratory Ventilation, Less than 24 Consecutive Hours (ICD-10-PCS; principal; 2019-03-21)
PROC: 0BH17EZ Insertion of Endotracheal Airway into Trachea, Via Natural or Artificial Opening (ICD-10-PCS; 2019-03-21)
PROC: 4A033R1 Measurement of Arterial Saturation, Peripheral, Percutaneous Approach (ICD-10-PCS; 2019-03-21)
PROC: 5A12012 Performance of Cardiac Output, Single, Manual (ICD-10-PCS; 2019-03-21)
PROC: 06HY33Z Insertion of Infusion Device into Lower Vein, Percutaneous Approach (ICD-10-PCS; 2019-03-21)
PROC: 5A09357 Assistance with Respiratory Ventilation, Less than 24 Consecutive Hours, Continuous Positive Airway Pressure (ICD-10-PCS; 2019-03-21)
PROC: B544ZZA Ultrasonography of Left Jugular Veins, Guidance (ICD-10-PCS; 2019-03-21)
PROC: 0W9B30Z Drainage of Left Pleural Cavity with Drainage Device, Percutaneous Approach (ICD-10-PCS; 2019-03-21)
DX: J96.01 Acute respiratory failure with hypoxia (principal); J18.9 Pneumonia, unspecified organism; N17.9 Acute kidney failure, unspecified; J44.0 Chronic obstructive pulmonary disease with (acute) lower respiratory infection; I46.9 Cardiac arrest, cause unspecified; F17.200 Nicotine dependence, unspecified, uncomplicated; E87.5 Hyperkalemia; Z66 Do not resuscitate; F41.9 Anxiety disorder, unspecified; E16.2 Hypoglycemia, unspecified; Z82.49 Family history of ischemic heart disease and other diseases of the circulatory system; Z83.3 Family history of diabetes mellitus; Z79.899 Other long term (current) drug therapy
CPT/HCPCS: 36415; 70450; 71045; 71275; 80048; 80053; 80320; 82140; 82550; 82553; 82803; 82962; 83735; 84484; 85007; 85025; 85610; 85730; 87040; 87070; 87205; 88112; 88312; 92950; 93005; 93010; 94002; 94644; 96374; 96375; 99292; G0378; G0480; J0171; J0610; J0696; J1200; J1265; J2250; J2597; J7030; J7070; Q9967